=== PATIENT | female | born 1980 | race African-American/Black ===

== ENCOUNTER 2021-03-18 10:08 | Emergency (ER) | payer OTHER ==
[~2021-03-18] VITALS: Ht 170.2 cm; Wt 80.0 kg
[2021-03-18] MEDS ORDERED: IBUPROFEN 400MG TABLET PO ONE (10:45)
[2021-03-18] MEDS ORDERED: IBUP-2028 MT (11:56)
[2021-03-18 12:36] VITALS: BP 117/85
== END 2021-03-18 12:54 | disposition home or self-care (01) ==
LOC: ER 10:14
DX: M25.512 Pain in left shoulder (principal); R51.9 Headache, unspecified; V49.49XA Driver injured in collision with other motor vehicles in traffic accident, initial encounter; Y93.89 Activity, other specified; Y92.488 Other paved roadways as the place of occurrence of the external cause
CPT/HCPCS: 73030; 99283